=== PATIENT | female | born 1985 | race Two or more races ===

== ENCOUNTER 2025-02-21 11:27 | Observation (INO) | payer MEDICAID ==
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
== END 2025-02-21 12:38 | disposition home or self-care (01) ==
LOC: UNDOADMOB 11:27 → LDRP 11:27 → UNDODISOB 12:38
PROVIDERS: ADMIT Obstetrics & Gynecology; ATTEND Obstetrics & Gynecology
DX: O26.893 Other specified pregnancy related conditions, third trimester (principal); Z04.1 Encounter for examination and observation following transport accident; Z98.890 Other specified postprocedural states; V89.2XXA Person injured in unspecified motor-vehicle accident, traffic, initial encounter; Y93.89 Activity, other specified; Y92.89 Other specified places as the place of occurrence of the external cause; Y99.8 Other external cause status
CPT/HCPCS: 76815; 81002; 94760; G0378

== ENCOUNTER 2025-05-20 10:00 | Observation (INO) | payer MEDICAID ==
--- NOTE | 2025-05-20 11:07 | DVH ---
BIOPHYSICAL PROFILE HISTORY: GDMA1 Comparison Study: US OBSTERICAL LIMITED on DOS: 02/21/25 TECHNIQUE: Multiple real-time grayscale sonographic images through the gravid uterus of the fetus with duplex doppler color flow and M-mode spectral analysis FINDINGS: BIOPHYSICAL PROFILE: breathing score: 2 movement score: 2 tone score: 2 Quantitative CONSTANTIN score: 2 (CONSTANTIN: 17.5 cm.) Total score: 8 Single live fetus in cephalic presentation. heart rate 147 beats per minute. Anterior placenta without previa or abruption Biophysical profile score 8 corresponding to an SELENE of 07/02/25 IMPRESSION: 1. Biophysical profile score: 8
[2025-05-20] MEDS ORDERED: FER325T PO (11:21)
[2025-05-20] MEDS ORDERED: PREN-96 PO (11:23)
--- NOTE | 2025-05-20 12:50 | DVHDS2 ---
Physician Discharge Progress N Final Diagnosis: gdm 34wks Operations or Procedures: Operations or Procedures nst reactive reviwed,sono Condition on Discharge: Good Disposition: Home Discharge Instructions: Diet: Consistent carbohydrate Activity: No Restrictions, As Tolerated Medications: na Follow Up Care: Specialist: 1w Discharge Statement: "Patient was advised to return to the ER or call 911 if any headaches, dizziness, shortness of breath, chest pain, abdominal pain, bleeding, fevers, or worsening of medical condition. Patient was counseled about treatment plan, medications, possible side effects, patientverbalized understanding. All questions were answered to the best of my ability. This discharge took greater then 30 minutes in planning, reviewing documentation, counseling the patient, and discussing with other team members." Visit Coding OBGYN Date of Service: May 20, 2025 Billing Provider: AVELINO BENDER DO DYE HOUSE WHEEL OPERATOR Common Visit Codes: [id number] OBS CARE (HIGH) DYE HOUSE WHEEL OPERATOR Procedure Codes: 55904-59- NON-STRESS TEST AVELINO BENDER DO May 20, 2025 12:50
== END 2025-05-20 11:37 | disposition home or self-care (01) ==
LOC: UNDOADMOB 10:00 → LDRP 10:00
PROVIDERS: ADMIT Obstetrics & Gynecology; ATTEND Obstetrics & Gynecology
DX: O24.419 Gestational diabetes mellitus in pregnancy, unspecified control (principal); Z3A.34 34 weeks gestation of pregnancy; Z98.890 Other specified postprocedural states
CPT/HCPCS: 59025; 76819; 81002; 82948; 82962; 94760; A4649; G0378

== ENCOUNTER 2025-05-27 06:05 | Observation (INO) | payer MEDICAID ==
[~2025-05-27 06:05] MED LIST: FER325T PO; PREN-96 PO
--- NOTE | 2025-05-27 09:49 | DVH ---
BIOPHYSICAL PROFILE HISTORY: gdma1 Comparison Study: US BIOPHYSICAL PROFILE on DOS: 05/20/25, US OBSTERICAL LIMITED on DOS: 02/21/25 TECHNIQUE: Multiple real-time grayscale sonographic images through the gravid uterus of the fetus with duplex Doppler color flow and M-mode spectral analysis FINDINGS: BIOPHYSICAL PROFILE: breathing score: 2 movement score: 2 tone score: 2 Quantitative CONSTANTIN score: 2 (CONSTANTIN: 19.62 Cm.) Total score: 8 The cervix is closed 4.07 Single live fetus in cephalic presentation. heart rate 127.03 beats per minute. Grade 1, anterior/fundal placenta without previa or abruption IMPRESSION: Biophysical profile score: 8
--- NOTE | 2025-05-27 12:18 | DVHDS2 ---
Physician Discharge Progress N Final Diagnosis: gdm,ama 34 wks Operations or Procedures: Operations or Procedures nst reactive reviwed,sono Condition on Discharge: Good Disposition: Home Discharge Instructions: Diet: Consistent carbohydrate Activity: No Restrictions, As Tolerated Medications: na Follow Up Care: Specialist: 3d Discharge Statement: "Patient was advised to return to the ER or call 911 if any headaches, dizziness, shortness of breath, chest pain, abdominal pain, bleeding, fevers, or worsening of medical condition. Patient was counseled about treatment plan, medications, possible side effects, patientverbalized understanding. All questions were answered to the best of my ability. This discharge took greater then 30 minutes in planning, reviewing documentation, counseling the patient, and discussing with other team members." Visit Coding OBGYN Date of Service: May 27, 2025 Billing Provider: AVELINO BENDER DO CAMPUS INTERVIEWS INTERN Common Visit Codes: [id number]-[id number] OBS CARE (HIGH) CAMPUS INTERVIEWS INTERN Procedure Codes: 42934-32- NON-STRESS TEST AVELINO BENDER DO May 27, 2025 12:18
== END 2025-05-27 10:10 | disposition home or self-care (01) ==
LOC: LDRP 08:54
PROVIDERS: ADMIT Obstetrics & Gynecology; ATTEND Obstetrics & Gynecology
DX: O24.419 Gestational diabetes mellitus in pregnancy, unspecified control (principal); Z3A.34 34 weeks gestation of pregnancy; Z98.890 Other specified postprocedural states
CPT/HCPCS: 59025; 76819; 81002; 82948; 82962; 94760; A4649; G0378

== ENCOUNTER 2025-06-03 09:04 | Observation (INO) | payer MEDICAID ==
--- NOTE | 2025-06-03 10:17 | DVH ---
BIOPHYSICAL PROFILE HISTORY: GDMA1 TECHNIQUE: Multiple real-time grayscale sonographic images through the gravid uterus of the fetus with duplex Doppler color flow. FINDINGS: BIOPHYSICAL PROFILE: breathing score: 2 movement score: 2 tone score: 2 Quantitative CONSTANTIN score: 2 Total score: 8 out of 8 Single live intrauterine . heart rate 119 beats per minute. Placenta anteriorly positioned. lie is breech IMPRESSION: Biophysical profile score: 8 out of 8 lie breech.
--- NOTE | 2025-06-03 10:53 | DVHDS2 ---
Physician Discharge Progress N Final Diagnosis: gdma1 35wks Operations or Procedures: Operations or Procedures nst reactive reviwed,sono Condition on Discharge: Good Disposition: Home Discharge Instructions: Diet: Consistent carbohydrate Activity: No Restrictions, As Tolerated Medications: na Follow Up Care: Specialist: 3d Discharge Statement: "Patient was advised to return to the ER or call 911 if any headaches, dizziness, shortness of breath, chest pain, abdominal pain, bleeding, fevers, or worsening of medical condition. Patient was counseled about treatment plan, medications, possible side effects, patientverbalized understanding. All questions were answered to the best of my ability. This discharge took greater then 30 minutes in planning, reviewing documentation, counseling the patient, and discussing with other team members." Visit Coding OBGYN Date of Service: Jun 03, 2025 Billing Provider: AVELINO BENDER DO HEEL SEAT TRIMMER Common Visit Codes: [id number] OBS CARE (HIGH) HEEL SEAT TRIMMER Procedure Codes: 93291-32- NON-STRESS TEST AVELINO BENDER DO Jun 03, 2025 10:52
== END 2025-06-03 10:20 | disposition home or self-care (01) ==
LOC: LDRP 09:04
PROVIDERS: ADMIT Obstetrics & Gynecology; ATTEND Obstetrics & Gynecology
DX: O24.410 Gestational diabetes mellitus in pregnancy, diet controlled (principal); Z3A.35 35 weeks gestation of pregnancy; Z98.890 Other specified postprocedural states
CPT/HCPCS: 59025; 76819; 81002; 82948; 82962; 94760; A4649; G0378